=== PATIENT | female | born 1960 | race Caucasian/White ===

== ENCOUNTER 2019-12-08 12:26 | Emergency (ER) | payer BC, MEDICAID ==
[2019-12-08 12:51] VITALS: BP 119/79; PULSE 87
[2019-12-08] MEDS ORDERED: Tetracaine HCl/PF 0.5% 4 ML Bottle EYEBOTH ONE (13:38)
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
== END 2019-12-08 14:40 | disposition home or self-care (01) ==
LOC: MW.ED 12:26
DX: H57.13 Ocular pain, bilateral (principal); H57.89 Other specified disorders of eye and adnexa; M19.90 Unspecified osteoarthritis, unspecified site; F17.210 Nicotine dependence, cigarettes, uncomplicated; Z91.048 Other nonmedicinal substance allergy status; Z79.84 Long term (current) use of oral hypoglycemic drugs
CPT/HCPCS: 99283